=== PATIENT | male | born 1985 | race Caucasian/White ===

== ENCOUNTER 2019-08-08 22:35 | Emergency (ER) | payer BC ==
[2019-08-08] MEDS ORDERED: Albuterol/Ipratropium 3.0-0.5 MG/3 ML Neb Soln NEB ONE (22:58)
[2019-08-08] MEDS ORDERED: Sodium Chloride 0.9% 1,000 ML IV ONE (22:58)
[2019-08-08] MEDS ORDERED: Ketorolac 30 MG/ML SDV IVPUSH ONE (22:58)
[2019-08-08] MEDS ORDERED: Sodium Chloride 0.9% 10 ML Syringe FLUSH PRN (22:58)
[2019-08-08] MEDS ORDERED: Sodium Chloride 0.9% 2.5 ML Syringe FLUSH PRN (22:58)
[2019-08-08] MEDS ORDERED: Ibuprofen 800 MG Tab PO ONE (23:00)
--- NOTE | 2019-08-08 23:12 | EDM.PDOC ---
ED HPI GENERAL MEDICAL PROBLEM - General Chief Complaint: Respiratory Problem Stated Complaint: SICK Time Seen by Provider: 08/08/19 22:38 - History of Present Illness INITIAL COMMENTS - FREE TEXT/NARRATIVE: HISTORY AND PHYSICAL: History of present illness: The patient is a 33-year-old male with no significant past medical history who presents with several days of cough occasionally productive of phlegm, body aches and malaise, feeling like he can't catch his breath subjective fevers and chills and diffuse chest pain from coughing. He did not get his influenza shot this year. He does not have a local care provider and denies abdominal pain vomiting or diarrhea. He says he's been trying to push hydration and has used [id number] Tylenol for pain and fever as well as NyQuil and DayQuil. He has no ill contacts that he is aware of. His chest pain is diffuse and not localized in any specific area and he does not have a sore throat and nasal congestion or drainage. He has no leg pain or swelling Review of systems: As per history of present illness and below otherwise all systems reviewed and negative. Past medical history: As per history of present illness and as reviewed below otherwise noncontributory. Surgical history: As per history of present illness and as reviewed below otherwise noncontributory. Social history: No reported history of drug or alcohol abuse. Family history: As per history of present illness and as reviewed below otherwise noncontributory. Physical exam: General: Well-developed well-nourished man who is nontoxic and speaking clearly in the ED without breathlessness hoarse or muffled voice. Vital signs are noted by me HEENT: Atraumatic, normocephalic, pupils reactive, negative for conjunctival pallor or scleral icterus, mucous membranes tacky, throat clear, neck supple, nontender, trachea midline. There is no cervical adenopathy or nuchal rigidity Lungs: Clear to auscultation with diminished breath sounds in the right base and occasional coarse breath sound but no wheezing stridor or work of breathing , , chest nontender. Heart: S1S2, regular rhythm and slightly tachycardic rate on my evaluation, negative for clicks, rubs, or JVD. Abdomen: Soft, nondistended, nontender. Negative for masses or hepatosplenomegaly. Normoactive bowel sounds Pelvis: Stable nontender. Genitourinary: Deferred. Rectal: Deferred. Extremities: Atraumatic, negative for cords or calf pain. Neurovascular unremarkable. No pedal edema or leg asymmetry Neuro: Awake, alert, oriented. Cranial nerves II through XII unremarkable. Cerebellum unremarkable. Motor and sensory unremarkable throughout. Exam nonfocal. Diagnostics: EKG chest x-ray CBC CMP lactic acid influenza Therapeutics: IV O2 monitor IV fluids duo neb Motrin Toradol Impression: Influenza B Definitive disposition and diagnosis as appropriate pending reevaluation and review of above. chest Pain Score (Numeric/FACES): 5 - Related Data Allergies Allergy/AdvReac Type Severity Reaction Status Date / Time No Known Allergies Allergy Verified 08/08/19 22:45 Home Meds: Home Meds . [No Known Home Meds] 08/08/19 [History] Past Medical History - Past Health History Medical/Surgical History: Denies Medical/Surgical History Social & Family History - Family History Family Medical History: Noncontributory - Tobacco Use Smoking Status *Q: Never Smoker - Recreational Drug Use Recreational Drug Use: No ED ROS GENERAL - Review of Systems Review Of Systems: Comprehensive ROS is negative, except as noted in HPI. ED EXAM, GENERAL - Physical Exam Exam: See Below (see Dictation) Course - Vital Signs Last Recorded V/S: Last Vital Signs Temp 38.7 C H 08/08/19 23:01 Pulse 120 H 08/08/19 22:38 Resp 18 08/08/19 22:38 BP 132/72 08/08/19 22:38 Pulse Ox 94 L 08/08/19 22:38 - Orders/Labs/Meds Orders: Active Orders 24 hr Category Date Time Status Cardiac Monitoring [RC] . DIRECTED Care 08/08/19 22:39 Active EKG Documentation Completion [RC] STAT Care 08/08/19 22:39 Active Oxygen Therapy, ED [RC] ASDIRECTED Care 08/08/19 22:38 Active Pulse Oximetry [RC] ASDIRECTED Care 08/08/19 22:39 Active RT Aerosol Therapy [RC] ASDIRECTED Care 08/08/19 22:58 Active Sodium Chloride 0.9% [Normal Saline] 1,000 ml Med 08/08/19 22:58 Active IV STAT Sodium Chloride 0.9% [Saline Flush] Med 08/08/19 22:58 Active 10 ml FLUSH ASDIRECTED PRN Sodium Chloride 0.9% [Saline Flush] Med 08/08/19 22:58 Active 2.5 ml FLUSH ASDIRECTED PRN Saline Lock Insert [OM.PC] Stat Oth 08/08/19 22:57 Ordered Medication Orders Sodium Chloride (Normal Saline) 1,000 mls @ 999 mls/hr IV STAT ONE Stop: 08/08/19 23:58 Last Admin: 08/08/19 23:29 Dose: 999 mls/hr Sodium Chloride (Saline Flush) 10 ml FLUSH ASDIRECTED PRN PRN Reason: Keep Vein Open Sodium Chloride (Saline Flush) 2.5 ml FLUSH ASDIRECTED PRN PRN Reason: Keep Vein Open Labs: Laboratory Tests 08/08/19 08/08/19 08/08/19 Range/Units 23:06 23:06 23:06 WBC 5.74 (4.0-11.0) K/uL RBC 5.01 (4.50-5.90) M/uL Hgb 14.9 (13.0-17.0) g/dL Hct 42.9 (38.0-50.0) % MCV 85.6 (80.0-98.0) fL MCH 29.7 (27.0-32.0) pg MCHC 34.7 (31.0-37.0) g/dL RDW Std Deviation 40.9 (28.0-62.0) fl RDW Coeff of Vijay 13 (11.0-15.0) % Plt Count 120 L (150-400) K/uL MPV 11.20 (7.40-12.00) fL Neut % (Auto) 83.4 H (48.0-80.0) % Lymph % (Auto) 7.3 L (16.0-40.0) % Lipscomb % (Auto) 9.1 (0.0-15.0) % Eos % (Auto) 0.0 (0.0-7.0) % Baso % (Auto) 0.2 (0.0-1.5) % Neut # (Auto) 4.8 (1.4-5.7) K/uL Lymph # (Auto) 0.4 L (0.6-2.4) K/uL Lipscomb # (Auto) 0.5 (0.0-0.8) K/uL Eos # (Auto) 0.0 (0.0-0.7) K/uL Baso # (Auto) 0.0 (0.0-0.1) K/uL Nucleated RBC % 0.0 /100WBC Nucleated RBCs # 0 K/uL Lactate 0.8 (0.20-2.00) mmol/L Sodium 136 (136-148) mmol/L Potassium 3.8 (3.5-5.1) mmol/L Chloride 101 (98-107) mmol/L Carbon Dioxide 23.7 (21.0-32.0) mmol/L BUN 14 (7.0-18.0) mg/dL Creatinine 1.3 (0.8-1.3) mg/dL Est Cr Clr Drug Dosing 95.72 mL/min Estimated GFR (MDRD) > 60.0 ml/min Glucose 168 H (74-106) mg/dL Calcium 8.1 L (8.5-10.1) mg/dL Total Bilirubin 0.4 (0.2-1.0) mg/dL AST 34 (15-37) IU/L ALT 56 (14-63) IU/L Alkaline Phosphatase 54 (46-116) U/L Total Protein 7.2 (6.4-8.2) g/dL Albumin 4.0 (3.4-5.0) g/dL Globulin 3.2 (2.6-4.0) g/dL Albumin/Globulin Ratio 1.3 (0.9-1.6) Meds: Medications Generic Name Dose Route Start Last Admin Trade Name Freq PRN Reason Stop Dose Admin Sodium Chloride 1,000 mls @ 999 mls/hr 08/08/19 22:58 08/08/19 23:29 Normal Saline IV 08/08/19 23:58 999 mls/hr STAT ONE Administration Sodium Chloride 10 ml 08/08/19 22:58 Saline Flush FLUSH ASDIRECTED PRN Keep Vein Open Sodium Chloride 2.5 ml 08/08/19 22:58 Saline Flush FLUSH ASDIRECTED PRN Keep Vein Open Discontinued Medications Generic Name Dose Route Start Last Admin Trade Name Freq PRN Reason Stop Dose Admin Albuterol/Ipratropium 3 ml 08/08/19 22:58 08/08/19 23:29 Duoneb 3.0-0.5 Mg/3 Ml NEB 08/08/19 22:59 3 ml ONETIME ONE Administration Ibuprofen 800 mg 08/08/19 23:00 08/08/19 23:28 Motrin PO 08/08/19 23:01 800 mg ONETIME ONE Administration Ketorolac Tromethamine 30 mg 08/08/19 22:58 08/08/19 23:29 Toradol IVPUSH 08/08/19 22:59 30 mg ONETIME ONE Administration Departure - Departure Time of Disposition: 23:44 Disposition: Home, Self-Care 01 Condition: Good Clinical Impression: Influenza B - Discharge Information Referrals: PCP,None [Primary Care Provider] - Forms: ED Department Discharge Additional Instructions: The following information is given to patients seen in the emergency department who are being discharged to home. This information is to outline your options for follow-up care. We provide all patients seen in our emergency department with a follow-up referral. The need for follow-up, as well as the timing and circumstances, are variable depending upon the specifics of your emergency department visit. If you don't have a primary care physician on staff, we will provide you with a referral. We always advise you to contact your personal physician following an emergency department visit to inform them of the circumstance of the visit and for follow-up with them and/or the need for any referrals to a consulting specialist. The emergency department will also refer you to a specialist when appropriate. This referral assures that you have the opportunity for followup care with a specialist. All of these measure are taken in an effort to provide you with optimal care, which includes your followup. Under all circumstances we always encourage you to contact your private physician who remains a resource for coordinating your care. When calling for followup care, please make the office aware that this follow-up is from your recent emergency room visit. If for any reason you are refused follow-up, please contact the [facility] emergency department at and ask to speak to the emergency department charge nurse. [facility] [address] [address] Push hydration and use [id number] Tylenol and ibuprofen in appropriate doses for fever management or temperature is 100.5 or higher. Please fill your prescription for Tamiflu tomorrow and start taking as directed. Expect symptoms to slowly improve over the next few days to one week. Call and schedule a follow -up appointment in our clinic for further reevaluation and care and return to ER as needed and as discussed. You have also been given [facility] option for Phenergan with codeine to help with the cough and use as directed and needed Sepsis Event Note - Evaluation Sepsis Screening Result: No Definite Risk - Focused Exam Vital Signs: Vital Signs Temp Temp Pulse Resp BP Pulse Ox 08/08/19 23:01 38.7 C H 08/08/19 22:38 35.5 C 120 H 18 132/72 94 L Date Exam was Performed: 08/08/19 Time Exam was Performed: 23:43 - My Orders Last 24 Hours: My Active Orders 08/08/19 22:38 Oxygen Therapy, ED [RC] ASDIRECTED 08/08/19 22:39 Cardiac Monitoring [RC] . DIRECTED EKG Documentation Completion [RC] STAT Pulse Oximetry [RC] ASDIRECTED 08/08/19 22:57 Saline Lock Insert [OM.PC] Stat 08/08/19 22:58 RT Aerosol Therapy [RC] ASDIRECTED Sodium Chloride 0.9% [Normal Saline] 1,000 ml IV STAT Sodium Chloride 0.9% [Saline Flush] 10 ml FLUSH ASDIRECTED PRN Sodium Chloride 0.9% [Saline Flush] 2.5 ml FLUSH ASDIRECTED PRN - Assessment/Plan Last 24 Hours: My Active Orders 08/08/19 22:38 Oxygen Therapy, ED [RC] ASDIRECTED 08/08/19 22:39 Cardiac Monitoring [RC] . DIRECTED EKG Documentation Completion [RC] STAT Pulse Oximetry [RC] ASDIRECTED 08/08/19 22:57 Saline Lock Insert [OM.PC] Stat 08/08/19 22:58 RT Aerosol Therapy [RC] ASDIRECTED Sodium Chloride 0.9% [Normal Saline] 1,000 ml IV STAT Sodium Chloride 0.9% [Saline Flush] 10 ml FLUSH ASDIRECTED PRN Sodium Chloride 0.9% [Saline Flush] 2.5 ml FLUSH ASDIRECTED PRN
--- NOTE | 2019-08-08 23:29 | CR ---
Indication: Chest pain with dyspnea. Technique: PA and lateral views the chest. Comparison: None Findings: The heart is normal in size. The lungs are clear. No infiltrate, pleural effusion, or pneumothorax is identified. Impression: No acute cardiopulmonary process. Dictated by Pauline Ritchie MD @ Aug 08 2019 11:26PM Signed by Dr. Pauline Ritchie @ Aug 08 2019 11:27PM
[2019-08-08 23:36] LABS: BLOOD UREA NITROGEN,BUN 14 mg/dL (7.0-18.0); CARBON DIOXIDE,CO2 23.7 mmol/L (21.0-32.0); CHLORIDE,CL 101 mmol/L (98-107); GLUCOSE RANDOM 168 mg/dL (74-106); POTASSIUM,K 3.8 mmol/L (3.5-5.1); SODIUM,NA 136 mmol/L (136-148)
== END 2019-08-09 00:17 | disposition home or self-care (01) ==
LOC: MW.ED 22:35
DX: J10.1 Influenza due to other identified influenza virus with other respiratory manifestations (principal)
CPT/HCPCS: 36415; 71046; 80053; 83605; 85025; 87804; 93005; 94640; 96361; 96374; 99284; A9270; J1885; J7030; 99283; J7620-GY